=== PATIENT | female | born 1955 | race Two or more races ===

== ENCOUNTER 2022-08-03 04:14 | Day surgery (SDC) | payer OTHER ==
[~2022-08-03 04:14] MED LIST: ACETAMINOPHEN 325 MG TABLET (FP) PO PRN
[2022-08-03] MEDS ORDERED: KETOROLAC TROMETHAMINE 0.5% EYE DROP 1 DROP DROPS ONE (07:26)
[2022-08-03] MEDS ORDERED: TROPICAMIDE 1% OPHTH SOLN 15 ML BOTTLE ONE (07:26)
[2022-08-03] MEDS ORDERED: OFLOXACIN 0.3% OPHTHALMIC SOLUTION 5 ML BOTTLE ONE (07:26)
[2022-08-03] MEDS ORDERED: PHENYLEPHRINE 2.5% OPTHALMIC DROP 2ML BOTTLE ONE (07:26)
[2022-08-03] MEDS ORDERED: CYCLOPENTOLATE HCL 1% OPHTH SOLN 2 ML BOTTLE ONE (07:26)
[2022-08-03] MEDS ORDERED: EPINEPHrine/PF 1 MG/1 ML (1:1,000) AMPULE ONE (07:29)
[2022-08-03] MEDS ORDERED: LIDOCAINE HCL/PF 2% SDV 5ML VIAL ONE (07:29)
[2022-08-03] MEDS ORDERED: BUPIVACAINE HCL/PF 0.75% 10 ML VIAL ONE (07:30)
[2022-08-03] MEDS ORDERED: POVIDONE-IODINE 5% OPHTHALMIC PREP 30 ML SOLUTION ONE (07:30)
[2022-08-03] MEDS ORDERED: LIDOCAINE HCL/PF 1% SDV 5ML VIAL ONE (07:30)
[2022-08-03] MEDS: PHENYLEPHRINE 2.5% OPHTH SOLN 15 ML BOTTLE OP SCH ×3 (07:45→07:55)
[2022-08-03] MEDS: CYCLOPENTOLATE HCL 1% OPHTH SOLN 2 ML BOTTLE OP SCH ×3 (07:45→07:55)
[2022-08-03] MEDS: KETOROLAC TROMETHAMINE 0.5% EYE DROP 1 DROP DROPS OP SCH ×3 (07:45→07:55)
[2022-08-03] MEDS: OFLOXACIN 0.3% OPHTHALMIC SOLUTION 5 ML BOTTLE OP SCH ×3 (07:45→07:55)
[2022-08-03] MEDS: TROPICAMIDE 1% OPHTH SOLN 15 ML BOTTLE OP SCH ×3 (07:45→07:55)
[2022-08-03] MEDS ORDERED: PROPOFOL 20 ML ONE (08:01)
[2022-08-03] MEDS ORDERED: MIDAZOLAM HCL 2 MG/2 ML SINGLE DOSE VIAL ONE (08:01)
[2022-08-03 08:44] VITALS: BMI 36.8
[2022-08-03] MEDS ORDERED: BUPIVACAINE HCL/PF 0.75% 10 ML VIAL RB ONE (09:00)
[2022-08-03] MEDS ORDERED: LIDOCAINE HCL/PF 2% SDV 5ML VIAL INF ONE (09:00)
[2022-08-03] MEDS ORDERED: POVIDONE-IODINE 5% OPHTHALMIC PREP 30 ML SOLUTION OD ONE (09:04)
[2022-08-03] MEDS ORDERED: BSS (NA/CA/MG/K) BALANCED SALT SOLUTION OPHTH SOLN 15 ML BOTTLE OD ONE (09:09)
[2022-08-03] MEDS ORDERED: LIDOCAINE HCL 1% PRESERVATIVE FREE - 30ML VIAL IO ONE (09:10)
[2022-08-03] MEDS ORDERED: CHONDROITIN SU A/HYALUR SOD 1 KIT IO ONE (09:11)
[2022-08-03] MEDS ORDERED: EPINEPHrine/PF 1 MG/1 ML (1:1,000) AMPULE SQ ONE (09:18)
[2022-08-03 11:43] VITALS: RESP 20
[2022-08-03 11:46] VITALS: BP 130/70; PULSE 60; TEMP 97
== END 2022-08-03 11:25 | disposition home or self-care (01) ==
LOC: JASU-SURG 04:14
PROVIDERS: ATTEND Ophthalmology
PROC: 08RJ3JZ Replacement of Right Lens with Synthetic Substitute, Percutaneous Approach (ICD-10-PCS; principal; 2022-08-03 09:00)
DX: H26.9 Unspecified cataract (principal)
CPT/HCPCS: V2632

== ENCOUNTER 2022-09-07 04:30 | Day surgery (SDC) | payer OTHER ==
[2022-09-06 10:12] VITALS: BMI 36.8
[2022-09-07] MEDS ORDERED: LIDOCAINE HCL/PF 2% SDV 5ML VIAL ONE (07:10)
[2022-09-07] MEDS ORDERED: BUPIVACAINE HCL/PF 0.75% 10 ML VIAL ONE (07:11)
[2022-09-07] MEDS ORDERED: POVIDONE-IODINE 5% OPHTHALMIC PREP 30 ML SOLUTION ONE (07:11)
[2022-09-07] MEDS ORDERED: LIDOCAINE HCL/PF 1% SDV 5ML VIAL ONE (07:11)
[2022-09-07] MEDS ORDERED: PHENYLEPHRINE 2.5% OPTHALMIC DROP 2ML BOTTLE ONE (07:19)
[2022-09-07] MEDS ORDERED: KETOROLAC TROMETHAMINE 0.5% EYE DROP 1 DROP DROPS ONE (07:19)
[2022-09-07] MEDS ORDERED: CYCLOPENTOLATE HCL 1% OPHTH SOLN 2 ML BOTTLE ONE (07:19)
[2022-09-07] MEDS ORDERED: TROPICAMIDE 1% OPHTH SOLN 15 ML BOTTLE ONE (07:19)
[2022-09-07] MEDS ORDERED: OFLOXACIN 0.3% OPHTHALMIC SOLUTION 5 ML BOTTLE ONE (07:20)
[2022-09-07 07:30] VITALS: RESP 18
[2022-09-07] MEDS: CYCLOPENTOLATE HCL 1% OPHTH SOLN 2 ML BOTTLE OP SCH ×3 (07:35→07:55)
[2022-09-07] MEDS: OFLOXACIN 0.3% OPHTHALMIC SOLUTION 5 ML BOTTLE OP SCH ×3 (07:35→07:55)
[2022-09-07] MEDS: TROPICAMIDE 1% OPHTH SOLN 15 ML BOTTLE OP SCH ×3 (07:35→07:55)
[2022-09-07] MEDS: PHENYLEPHRINE 2.5% OPHTH SOLN 15 ML BOTTLE OP SCH ×3 (07:35→07:55)
[2022-09-07] MEDS: KETOROLAC TROMETHAMINE 0.5% EYE DROP 1 DROP DROPS OP SCH ×3 (07:35→07:55)
[2022-09-07] MEDS ORDERED: MIDAZOLAM HCL 2 MG/2 ML SINGLE DOSE VIAL ONE (08:54)
[2022-09-07] MEDS ORDERED: PROPOFOL 20 ML ONE (08:54)
[2022-09-07] MEDS ORDERED: BUPIVACAINE HCL/PF 0.75% 10 ML VIAL RB ONE (09:09)
[2022-09-07] MEDS ORDERED: LIDOCAINE HCL/PF 2% SDV 5ML VIAL INF ONE (09:09)
[2022-09-07] MEDS ORDERED: POVIDONE-IODINE 5% OPHTHALMIC PREP 30 ML SOLUTION OS ONE (09:10)
[2022-09-07] MEDS ORDERED: BSS (NA/CA/MG/K) BALANCED SALT SOLUTION OPHTH SOLN 15 ML BOTTLE IO ONE (09:14)
[2022-09-07] MEDS ORDERED: LIDOCAINE HCL 1% PRESERVATIVE FREE - 30ML VIAL IO ONE (09:15)
[2022-09-07] MEDS ORDERED: CHONDROITIN SU A/HYALUR SOD 1 KIT IO ONE (09:16)
[2022-09-07] MEDS ORDERED: EPINEPHrine/PF 1 MG/1 ML (1:1,000) AMPULE SQ ONE (09:23)
[2022-09-07 10:30] VITALS: BP 141/66; PULSE 57; TEMP 97.7
== END 2022-09-07 11:00 | disposition home or self-care (01) ==
LOC: JASU-SURG 04:30
PROVIDERS: ATTEND Ophthalmology
PROC: 08RK3JZ Replacement of Left Lens with Synthetic Substitute, Percutaneous Approach (ICD-10-PCS; principal; 2022-09-07 09:00)
DX: H26.9 Unspecified cataract (principal)
CPT/HCPCS: V2632

== ENCOUNTER 2025-03-21 18:05 | Inpatient (IN) | payer OTHER ==
[2025-03-21] MEDS ORDERED: SODIUM CHLORIDE 500 ML IV STA (19:06)
[2025-03-21 19:24] LABS: ABSOLUTE IMMATURE GRANULOCYTES 0.05 x10^3/uL (0.0-0.031); BASOPHILS # 0.04 x10^3/uL (0.01-0.08); EOSINOPHIL % 0.3 % (0.7-5.8); EOSINOPHILS # 0.03 x10^3/uL (0.04-0.36); MCHC 33.1 g/dl (32.2-35.5); MEAN CELL VOLUME 87.7 fl (79.4-94.8); MEAN PLT VOLUME 8.9 fl (9.4-12.3); MONOCYTE # 0.68 x10^3/uL (0.24-0.86); MONOCYTE % 6.7 % (4.7-12.5); RDW 11.4 % (12.4-16.4)
[2025-03-21 19:29] LABS: GLUCOSE,RANDOM 103.0 mg/dL (74-106)
[2025-03-21 19:30] LABS: TOT PROT 7.1 g/dl (6.4-8.2)
[2025-03-21 19:32] LABS: ALK PHOS 107.0 U/L (40-150)
[2025-03-21] MEDS ORDERED: SODIUM CHLORIDE 1,000 ML IV STA (19:34)
[2025-03-21 19:35] LABS: CREATININE 1.46 mg/dL (0.55-1.3); SGOT/AST 18.0 U/L (5-34); SGPT/ALT 9.0 U/L (0-55)
[2025-03-21 19:57] LABS: CO2 22.0 mmol/L (21-32)
[2025-03-21] MEDS: SODIUM CHLORIDE 0.9% 500 ML INFUS.BAG IV ONE (20:22)
[2025-03-21 20:33] LABS: HCV DIAGNOSTIC IN-HOUSE W/RFLX NON-REACTIVE (NONREACTIVE); HIV INTERPRETATION NEGATIVE (NEGATIVE)
[2025-03-21 21:12] LABS: EPI CELLS 32 /uL (0-25.1); HYALINE CASTS 0 /uL (0-3.1); URINE APPEARANCE CLOUDY; URINE BACTERIA >9,000 /uL (0-1359); URINE BILIRUBIN NEGATIVE (NEGATIVE); URINE COLOR YELLOW; URINE GLUCOSE (UA) NEGATIVE (NEGATIVE); URINE KETONE NEGATIVE (NEGATIVE); URINE LEUK ESTERASE TRACE (NEGATIVE); URINE NITRITE NEGATIVE (NEGATIVE); URINE PROTEIN NEGATIVE (NEGATIVE); URINE RBC 2 /uL (0-23.9); URINE UROBILINOGEN 0.2 mg/dL (0.2-1.0); URINE WBC 15 /uL (0-25.8)
[2025-03-21] MEDS: SODIUM CHLORIDE 1,000 ML IV SCH (21:44)
[2025-03-21] MEDS: HEPARIN NA (PORCINE) 5,000 UNITS/ML 1ML VIAL SQ SCH (21:45)
[2025-03-21] MEDS: CEFTRIAXONE 1 GM in DEXTROSE 5%-WATER - 50 ML IVPB ONE (23:24)
[2025-03-21 23:45] VITALS: BMI 33.6
[2025-03-22] MEDS: ACETAMINOPHEN 1000 MG/100 ML BAG IVPB PRN
[2025-03-22 02:52] LABS: GLUCOSE,RANDOM 101.0 mg/dL (74-106)
[2025-03-22 02:56] LABS: CO2 24.0 mmol/L (21-32)
[2025-03-22 02:57] LABS: CREATININE 1.44 mg/dL (0.55-1.3)
[2025-03-22] MEDS: SODIUM CHLORIDE 1 GM TABLET PO ONE (04:02)
[2025-03-22] MEDS: SODIUM ZIRCONIUM CYCLOSILICATE (LOKELMA) 5 GM PACKET PO SCH (04:02)
[2025-03-22] MEDS: METOCLOPRAMIDE HCL INJECTION 10 MG/2 ML VIAL IVPUSH ONE (04:55)
[2025-03-22] MEDS: VERAPAMIL HCL 80 MG TABLET PO SCH (09:54)
[2025-03-22] MEDS: SODIUM CHLORIDE 1,000 ML IV SCH (09:55)
[2025-03-22] MEDS ORDERED: VALSARTAN 160 MG TABLET PO SCH (10:00)
[2025-03-22 10:52] LABS: ABSOLUTE IMMATURE GRANULOCYTES 0.04 x10^3/uL (0.0-0.031); BASOPHILS # 0.03 x10^3/uL (0.01-0.08); EOSINOPHIL % 0.3 % (0.7-5.8); EOSINOPHILS # 0.02 x10^3/uL (0.04-0.36); MCHC 32.7 g/dl (32.2-35.5); MEAN CELL VOLUME 86.8 fl (79.4-94.8); MEAN PLT VOLUME 9.2 fl (9.4-12.3); MONOCYTE # 0.35 x10^3/uL (0.24-0.86); MONOCYTE % 4.4 % (4.7-12.5); RDW 11.1 % (12.4-16.4)
[2025-03-22 11:20] LABS: GLUCOSE,RANDOM 152.0 mg/dL (74-106); TOT PROT 6.7 g/dl (6.4-8.2)
[2025-03-22 11:21] LABS: CO2 23.0 mmol/L (21-32)
[2025-03-22 11:23] LABS: ALK PHOS 102.0 U/L (40-150)
[2025-03-22 11:25] LABS: SGOT/AST 17.0 U/L (5-34); SGPT/ALT 11.0 U/L (0-55)
[2025-03-22 11:26] LABS: CREATININE 1.43 mg/dL (0.55-1.3)
[2025-03-22 17:53] LABS: GLUCOSE,RANDOM 133.0 mg/dL (74-106)
[2025-03-22 17:54] LABS: CO2 22.0 mmol/L (21-32)
[2025-03-22 17:59] LABS: CREATININE 1.35 mg/dL (0.55-1.3)
[2025-03-22] MEDS: GABAPENTIN 300 MG CAPSULE PO SCH (21:03)
[2025-03-23] MEDS ORDERED: METOCLOPRAMIDE HCL INJECTION 10 MG/2 ML VIAL IVPUSH PRN (08:40)
[2025-03-23 09:25] LABS: ABSOLUTE IMMATURE GRANULOCYTES 0.04 x10^3/uL (0.0-0.031); BASOPHILS # 0.04 x10^3/uL (0.01-0.08); EOSINOPHIL % 0.2 % (0.7-5.8); EOSINOPHILS # 0.02 x10^3/uL (0.04-0.36); MCHC 32.3 g/dl (32.2-35.5); MEAN CELL VOLUME 87.8 fl (79.4-94.8); MEAN PLT VOLUME 9.3 fl (9.4-12.3); MONOCYTE # 0.40 x10^3/uL (0.24-0.86); MONOCYTE % 4.6 % (4.7-12.5); RDW 11.2 % (12.4-16.4)
[2025-03-23] MEDS: CEFTRIAXONE 1 GM in DEXTROSE 5%-WATER - 50 ML IVPB SCH (09:37)
[2025-03-23 10:08] LABS: GLUCOSE,RANDOM 185.0 mg/dL (74-106)
[2025-03-23 10:10] LABS: CO2 23.0 mmol/L (21-32)
[2025-03-23 10:14] LABS: CREATININE 1.35 mg/dL (0.55-1.3)
[2025-03-24 08:07] LABS: ABSOLUTE IMMATURE GRANULOCYTES 0.04 x10^3/uL (0.0-0.031); BASOPHILS # 0.05 x10^3/uL (0.01-0.08); EOSINOPHIL % 0.3 % (0.7-5.8); EOSINOPHILS # 0.02 x10^3/uL (0.04-0.36); MCHC 32.8 g/dl (32.2-35.5); MEAN CELL VOLUME 87.1 fl (79.4-94.8); MEAN PLT VOLUME 8.9 fl (9.4-12.3); MONOCYTE # 0.50 x10^3/uL (0.24-0.86); MONOCYTE % 6.6 % (4.7-12.5); RDW 11.3 % (12.4-16.4)
[2025-03-24 08:42] LABS: GLUCOSE,RANDOM 96.0 mg/dL (74-106); TOT PROT 6.4 g/dl (6.4-8.2)
[2025-03-24 08:43] LABS: CO2 24.0 mmol/L (21-32)
[2025-03-24 08:45] LABS: ALK PHOS 89.0 U/L (40-150)
[2025-03-24 08:48] LABS: SGOT/AST 14.0 U/L (5-34); SGPT/ALT 9.0 U/L (0-55)
[2025-03-24 09:10] LABS: CREATININE 1.18 mg/dL (0.55-1.3)
[2025-03-24] MEDS: PANTOPRAZOLE 40 MG TABLET PO SCH (10:33)
[2025-03-24] MEDS: METOCLOPRAMIDE HCL INJECTION 10 MG/2 ML VIAL IVPUSH SCH (16:54)
[2025-03-25] MEDS: METOCLOPRAMIDE HCL 10 MG TABLET (FP) PO SCH (06:13)
[2025-03-25] MEDS ORDERED: POLYETHYLENE GLYCOL (HEALTHYLAX) 3350 17 GM PACKET PO SCH (09:00)
[2025-03-25] MEDS: COSYNTROPIN 0.25 MG VIAL IVPUSH ONE (09:00)
[2025-03-25 10:01] LABS: ABSOLUTE IMMATURE GRANULOCYTES 0.04 x10^3/uL (0.0-0.031); BASOPHILS # 0.06 x10^3/uL (0.01-0.08); EOSINOPHIL % 0.1 % (0.7-5.8); EOSINOPHILS # 0.01 x10^3/uL (0.04-0.36); MCHC 32.2 g/dl (32.2-35.5); MEAN CELL VOLUME 87.8 fl (79.4-94.8); MEAN PLT VOLUME 9.2 fl (9.4-12.3); MONOCYTE # 0.44 x10^3/uL (0.24-0.86); MONOCYTE % 5.5 % (4.7-12.5); RDW 11.5 % (12.4-16.4)
[2025-03-25 10:22] LABS: GLUCOSE,RANDOM 190.0 mg/dL (74-106); TOT PROT 6.7 g/dl (6.4-8.2)
[2025-03-25 10:23] LABS: CO2 25.0 mmol/L (21-32)
[2025-03-25 10:25] LABS: ALK PHOS 92.0 U/L (40-150)
[2025-03-25 10:28] LABS: CREATININE 1.44 mg/dL (0.55-1.3); SGPT/ALT 10.0 U/L (0-55)
[2025-03-25] MEDS: POLYETHYLENE GLYCOL (HEALTHYLAX) 3350 17 GM PACKET PO SCH (10:53)
[2025-03-25 11:06] LABS: SGOT/AST 16.0 U/L (5-34)
[2025-03-26 02:39] VITALS: RESP 18
[2025-03-26 09:01] LABS: ABSOLUTE IMMATURE GRANULOCYTES 0.03 x10^3/uL (0.0-0.031); BASOPHILS # 0.07 x10^3/uL (0.01-0.08); EOSINOPHIL % 0.2 % (0.7-5.8); EOSINOPHILS # 0.02 x10^3/uL (0.04-0.36); MCHC 33.2 g/dl (32.2-35.5); MEAN CELL VOLUME 87.7 fl (79.4-94.8); MEAN PLT VOLUME 8.9 fl (9.4-12.3); MONOCYTE # 0.43 x10^3/uL (0.24-0.86); MONOCYTE % 5.0 % (4.7-12.5); RDW 11.5 % (12.4-16.4)
[2025-03-26 10:02] LABS: GLUCOSE,RANDOM 108.0 mg/dL (74-106)
[2025-03-26 10:03] LABS: CO2 25.0 mmol/L (21-32)
[2025-03-26 10:08] LABS: CREATININE 1.48 mg/dL (0.55-1.3)
[2025-03-26 15:01] VITALS: BP 148/73; PULSE 70; TEMP 97.9
[2025-03-27 15:08] LABS: RENIN ACTIVITY(PRA) 18.864 ng/mL/hr (0.167-5.380)
== END 2025-03-26 18:07 | disposition home or self-care (01) | DRG 424 ==
LOC: JER 18:05 → JERBED 19:41 → J6S 23:04
PROVIDERS: ADMIT Hospitalist; ATTEND Internal Medicine
DX: E22.2 Syndrome of inappropriate secretion of antidiuretic hormone (principal); N17.9 Acute kidney failure, unspecified; E27.40 Unspecified adrenocortical insufficiency; E87.5 Hyperkalemia; I10 Essential (primary) hypertension; K21.9 Gastro-esophageal reflux disease without esophagitis; N39.0 Urinary tract infection, site not specified; R11.0 Nausea; R73.03 Prediabetes; R73.9 Hyperglycemia, unspecified
CPT/HCPCS: 36415; 70450-TC; 71250-TC; 74177-TC; 76775-TC; 80048; 80053; 81003; 82024; 82088; 82533; 82570; 82962; 83036; 83735; 83935; 84100; 84244; 84300; 84439; 84443; 84550; 85025; 86803; 87086; 87389; 93005; 93010; 99285-25; J0834; Q9967